=== PATIENT | female | born 1995 | race Caucasian/White ===

== ENCOUNTER 2016-08-26 07:02 | Inpatient (IN) | payer BC ==
[2016-08-26] VITALS (60 sets, daily range): BP systolic 110–161; BP diastolic 53–95; PULSE 61–103; TEMP 97.6–98.3
[~2016-08-26] VITALS: Ht 165.2 cm; Wt 111.6 kg
[~2016-08-26 07:02] MED LIST: PRENATAL PO
[2016-08-26 07:50] LABS: BASO % 0.3 % (0.0-2.0); EOS # 0.1 (0.0-0.7); GRAN # 9.2 (1.4-6.5); GRAN % 78.4 % (42.2-75.2); LYMPH # 1.2 (1.2-3.4); LYMPH % 10.3 % (20.0-51.0); MEAN CELL VOLUME 81 fl (80.0-100.0); MEAN CORPUSCULAR HGB CONC 33 g/dl (33.0-37.0); MONO % 8.6 % (1.7-9.3); PLATELET COUNT 215 K/mm3 (130-400); REDCELL DISTRIBUTION WIDTH-CV 14.9 % (11.5-14.5); WHITE BLOOD COUNT 11.7 K/mm3 (4.8-10.8)
[2016-08-26 07:57] LABS: HEMATOCRIT 34.7 % (37.0-47.0); HEMOGLOBIN 11.3 g/dl (12.5-16.0); MEAN CORPUSCULAR HEMOGLOBIN 26 pg (27.0-31.0)
[2016-08-27] VITALS (16 sets, daily range): BP systolic 114–157; BP diastolic 51–104; PULSE 80–96; TEMP 97.6–98.6
[2016-08-27 06:58] LABS: BASO % 0.3 % (0.0-2.0); EOS % 0.1 % (0-4.0); GRAN # 10.6 (1.4-6.5); GRAN % 83.2 % (42.2-75.2); LYMPH # 0.9 (1.2-3.4); LYMPH % 7.4 % (20.0-51.0); MEAN CELL VOLUME 82 fl (80.0-100.0); MEAN CORPUSCULAR HGB CONC 33 g/dl (33.0-37.0); MEAN PLATELET VOLUME 11.9 fl (7.4-10.4); MONO % 7.7 % (1.7-9.3); PLATELET COUNT 176 K/mm3 (130-400); RED BLOOD COUNT 3.41 M/mm3 (4.10-5.30); REDCELL DISTRIBUTION WIDTH-CV 14.9 % (11.5-14.5); WHITE BLOOD COUNT 12.7 K/mm3 (4.8-10.8)
[2016-08-27 07:01] LABS: HEMOGLOBIN 9.1 g/dl (12.5-16.0); MEAN CORPUSCULAR HEMOGLOBIN 27 pg (27.0-31.0)
[2016-08-28 02:00] VITALS: BP 129/69; PULSE 90; TEMP 98.4
[2016-08-28 07:49] VITALS: BP 143/82; PULSE 87; TEMP 98.1
[2016-08-28] MEDS ORDERED: IBU800 M1 PO (14:44)
[2016-08-28] MEDS ORDERED: PERCOCET 325 MG1 TA2 PO (14:44)
[2016-08-28 15:00] VITALS: BP 146/79; PULSE 87; TEMP 98.1
[2016-08-28 21:00] VITALS: BP 128/72; PULSE 83; TEMP 98.2
[2016-08-29] MEDS ORDERED: FERROUS SU325 MG/TAB PO (07:54)
[2016-08-29 09:28] VITALS: BP 142/84; PULSE 94; TEMP 98.1
== END 2016-08-29 16:10 | disposition home or self-care (01) | DRG 765 ==
LOC: LDR 07:02 → OB 07:02
PROVIDERS: Student in an Organized Health Care Education/Training Program
PROC: 10D00Z1 Extraction of Products of Conception, Low, Open Approach (ICD-10-PCS; principal; 2016-08-26)
PROC: 0UB10ZZ Excision of Left Ovary, Open Approach (ICD-10-PCS; 2016-08-26)
PROC: 3E033VJ Introduction of Other Hormone into Peripheral Vein, Percutaneous Approach (ICD-10-PCS; 2016-08-26)
DX: O48.0 Post-term pregnancy (principal); O14.03 Mild to moderate pre-eclampsia, third trimester; O76 Abnormality in fetal heart rate and rhythm complicating labor and delivery; O62.0 Primary inadequate contractions; O99.824 Streptococcus B carrier state complicating childbirth; O34.83 Maternal care for other abnormalities of pelvic organs, third trimester; N83.202 Unspecified ovarian cyst, left side; O99.02 Anemia complicating childbirth; D64.9 Anemia, unspecified; Z3A.40 40 weeks gestation of pregnancy; Z37.0 Single live birth
CPT/HCPCS: J0690; J1885; J2250; J2270; J2370; J2400; J2405; J2540; J2590; J2704; J3010; J7120